=== PATIENT | female | born 1960 | race Caucasian/White ===

== ENCOUNTER 2018-11-15 11:36 | Emergency (ER) | payer BC ==
[~2018-11-15] VITALS: Ht 160 cm; Wt 72.6 kg
[2018-11-15] MEDS ORDERED: BONINE25 MG PO (14:39)
[2018-11-15 14:42] LABS: BASO % 0.8 % (0.0-2.0); EOS % 0.2 % (0-4.0); GRAN # 2.9 (1.4-6.5); GRAN % 58.9 % (42.2-75.2); HEMATOCRIT 39.4 % (37.0-47.0); HEMOGLOBIN 13.5 g/dl (12.5-16.0); LYMPH # 1.6 (1.2-3.4); LYMPH % 31.5 % (20.0-51.0); MEAN CELL VOLUME 87 fl (80.0-100.0); MEAN CORPUSCULAR HEMOGLOBIN 30 pg (27.0-31.0); MEAN CORPUSCULAR HGB CONC 34 g/dl (33.0-37.0); MEAN PLATELET VOLUME 10.5 fl (7.4-10.4); MONO # 0.4 (0.1-0.6); MONO % 8.4 % (1.7-9.3); PLATELET COUNT 168 K/mm3 (130-400); RED BLOOD COUNT 4.55 M/mm3 (4.10-5.30); REDCELL DISTRIBUTION WIDTH-CV 14.5 % (11.5-14.5)
[2018-11-15 14:56] LABS: ALBUMIN 4.1 gm/dL (3.5-5.0); BILIRUBIN,TOTAL 0.5 mg/dL (0.0-1.0); CALCIUM 9.8 mg/dL (8.4-10.2); CREATININE, serum 0.93 (0.52-1.25)
[2018-11-15 15:30] VITALS: BP 115/69; PULSE 56; TEMP 97
== END 2018-11-15 15:35 | disposition home or self-care (01) ==
LOC: COL.ER 11:36
PROVIDERS: Family Medicine
DX: H81.21 Vestibular neuronitis, right ear (principal)
CPT/HCPCS: J7030